=== PATIENT | female | born 1985 | race Caucasian/White ===

== ENCOUNTER 2018-02-05 23:31 | Emergency (ER) | payer OTHER ==
[~2018-02-05] VITALS: Ht 160 cm; Wt 54.4 kg
[2018-02-05 23:45] VITALS: Ht 160 cm; Wt 54.4 kg
[2018-02-06 01:09] VITALS: BP 95/56
== END 2018-02-06 01:09 | disposition home or self-care (01) ==
LOC: ED 23:31
DX: J40 Bronchitis, not specified as acute or chronic (principal); J06.9 Acute upper respiratory infection, unspecified
CPT/HCPCS: J1885